=== PATIENT | female | born 1985 | race Caucasian/White ===

== ENCOUNTER 2016-02-29 14:29 | Emergency (ER) | payer OTHER, MEDICAID ==
[2016-02-29 14:46] VITALS: BP 146/90
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
== END 2016-02-29 15:28 | disposition home or self-care (01) ==
LOC: UCEAST 14:29
DX: S16.1XXA Strain of muscle, fascia and tendon at neck level, initial encounter (principal); X58.XXXA Exposure to other specified factors, initial encounter; Y93.9 Activity, unspecified; Y92.9 Unspecified place or not applicable; Z88.0 Allergy status to penicillin
CPT/HCPCS: 99212; G0463

== ENCOUNTER 2018-11-30 12:36 | Inpatient (IN) | payer BC, MEDICAID ==
[2018-11-30] MEDS ORDERED: Dinoprostone* 10 MG VAG.SUPP VAGINAL ONE (13:05)
[2018-11-30] MEDS ORDERED: Buffered Lidocaine 1% SYRIN* 1 ML/SYRINGE INTRADERM ONE (13:05)
[2018-11-30] MEDS ORDERED: Lactated Ringers 1000 ML Bag* 1,000 ML IV ONE (13:05)
--- NOTE | 2018-11-30 13:25 | HP ---
General Information - Reason for Visit 33 y/o at 40w0d here for IOL secondary to GHTN - General Information Maternal Age: 28 Grav: 4 Para: 3 SAB: 0 IEA: 0 Estimated Due Date: 11/30/18 Determined By: LMP Gestational Age in Weeks/Days: 40w0d Maternal Blood Type and Rh: A Negative - Results this Serology/RPR Result: Non-Reactive Rubella Result: Non-Immune - equivocal HBsAg Result: Negative HIV Result: Negative GBS Culture Result: Negative Past Medical History Delivery History: Hx Uncomplicated Vaginal Delivery - x 3 Pertinent Past Medical History: See Records Pertinent Past Surgical History: See Records Past Surgical History Comment: none Pertinent Family History: Non-Contributory - Antepartal Records Antepartal Records: Reviewed, Complicated by: - Morbid obesity, hypothyroidism, Rh Negative, Rubella Equivocal Review of Systems Constitutional: Comfortable CV Complaint: No Respiratory: Shortness of Breath: No Gastrointestinal: No Nausea/Vomiting, Normal Bowel Movement Genitourinary: No Dysuria, No Bleeding, No Leaking Fluid Musculoskeletal: No Complaint, No Epigastric Pain Neurological: No Headache, No Visual Changes Movement: Normal Exam Allergies/Adverse Reactions: Allergies MS Penicillins [Penicillins] Allergy (Intermediate, Verified 11/30/18 13:32) Rash T 97.3 Pulse 90 RR 20 BP 135/85 O2 Sat 100% - Measurements Height: 5 ft 9 in Weight: 345 lb Body Mass Index (BMI): 50.9 Pre- Weight: 280 lb - Exam Breast: Breast Exam Deferred CVA: No CVA Tenderness Extremities: No Edema Heart: Normal Rhythm/Heart Sounds HEENT: No Significant Findings Lungs: Clear Bilaterally Rectal: Rectal Exam Deferred Reflexes: DTR 2+ Thyroid: No Thyromegaly - Abdominal Exam Abdomen Exam: Non-Tender - Ultrasound/Biophysical Profile Ultrasound Status: Bedside Exam Ultrasound Findings: Vertex Targeted Exam Findings See L&D Outpatient Visit Provider Note for Findings: Yes Estimated Weight: 7#8oz via leopolds Cervical Exam: 1cm Effacement: 70% Station: -2 Presenting Part: Vertex Membrane Status: Intact Bleeding/Discharge: None EFM Findings - External Monitor Findings Baseline Heart Rate: 145 External Monitor Findings: Accelerations Present, No Pattern of Variable or Late Decelerations, Variability Moderate, Baseline Stable External Monitor Findings Comment: reactive, good variability Contractions: Irregular, Mild, < 45 Seconds Assessment/Plan - Assessment 33 y/o at 40w0d with GHTN, asymptomatic, here for IOL - AVSS, afebrile, hemodynamically stable - GHTN - qualified for GHTN diagnosis today in office with elevated BP. No severe range BP's, no signs/sx of PreE with severe features, denies KILPATRICK, RUQ pain , scotoma. Will proceed with IOL. Will give Magnesium sulfate for seizure ppx if s/sx of PreE with severe features develop. PreE laboratory evaluation pending. - Hx of x 3, uncomplicated - complicated by morbid obesity - SCD's while in labor and post , consider Lovenox post if limited activity - GBS negative - Rh negative - FS pp, rhogam as indicated - Rubella Equivocal - offer MMR PP - Will place cervidil for IOL - Plans to labor/deliver without epidural Ethan Greg, DO OBGYN - Obstetrical Risk Factors Obstetrical Risk Factors: Obesity, Gestational Hypertension - Plan Plan: Induction
[2018-11-30] MEDS ORDERED: Lactated Ringers 1000 ML Bag* 1,000 ML IV SCH ×2 (14:00→21:00)
[2018-11-30] MEDS ORDERED: Oxytocin in LR* 20 UNITS/1,000 ML BAG IVPB SCH ×2 (14:00→21:00)
[2018-11-30 14:25] LABS: ABS Basophils 0.1 10^3/ul (0-0.2); ABS Lymphocytes 1.3 10^3/ul (1.0-4.8); ABS Monocytes 0.6 10^3/ul (0-0.8); ABS Neutrophils 7.6 10^3/ul (1.5-7.7); Eosinophil % 0.3 %; Hematocrit 31 % (35-47); Hemoglobin 10.8 g/dL (12.0-16.0); Lymphocyte % 13.8 %; Mean Corpuscular HGB Conc 35 g/dL (31-36); Mean Corpuscular Hemoglobin 31 pg (27-31); Mean Corpuscular Volume 89 fL (80-97); Mean Platelet Volume 7.6 fL (7.4-10.4); Platelet Count 276 10^3/uL (150-450); Red Blood Count 3.49 10^6 /uL (3.70-4.87); Red Cell Distribution Width 15 % (10-15); White Blood Count 9.6 10^3/uL (3.5-10.8)
[2018-11-30 14:37] LABS: Albumin 3.2 g/dL (3.2-5.2); Albumin/Globulin Ratio 1.1 (1-3); BUN/Creatinine Ratio 14.5 (8-20); Calcium 8.5 mg/dL (8.6-10.3); EGFR African American 153.1 (>60); EGFR Non-African American 126.5 (>60); Globulin 2.8 g/dL (2-4); Potassium 3.7 mmol/L (3.5-5.0); Total Bilirubin 0.4 mg/dL (0.2-1.0)
[2018-11-30 14:53] LABS: Urine Benzodiazepine Screen None Detected (None Detect); Urine Opiates Screen None Detected (None Detect)
--- NOTE | 2018-11-30 14:56 | PN ---
Progress Note - Progress Note Date of Service: 11/30/18 Note: 33 y/o at 40w0d here for IOL 2/2 GHTN Cervidil placed at 1445 hours. FHT reactiver and reassuring, category I tracing. BP mild range, no severe range BP's, pt remains asymptomatic. PreE labs collected and reviewed, WNL plts, AST/ALT, Creatinine and Uric Acid. Will re-examin as clinically indicated. Ethan Garza, DO [facility]
[2018-11-30] MEDS ORDERED: Promethazine INJ(RESTRICTED)* 25 MG/ML 1 ML VIAL IV PRN (18:01)
[2018-11-30] MEDS ORDERED: Nalbuphine* 10 MG/ML 1 ML VIAL IV PRN (18:01)
--- NOTE | 2018-11-30 18:13 | PN ---
Progress Note - Progress Note Date of Service: 11/30/18 Note: Pt with good response to cervidil, reports contraction and back discomfort. Re-examined and has changed cervix to 5cm/80/-1. Cervidil removed. Nubaine and phenergan for pain relief. Pt remains asymptomatic, BP's normotensive currently. 33 y/o at 40w0d with GHTN, normal PEC evaluation, here for IOL - FHT reactive and reassuring, continue heart monitoring per protocol - IOL: cervidil now out, pt now 5cm - GHTN - BP's normotensive currently, asymptomatic, PreE lab eval WNL - GBS negative - Rh neg - FS pp, rhogam as indicated - Rubella Equiv - offer MMR PP - Anticipate vaginal delivery
[2018-11-30] MEDS ORDERED: Promethazine INJ(RESTRICTED)* 25 MG/ML 1 ML VIAL ONE (18:15)
[2018-11-30] MEDS ORDERED: Nalbuphine* 10 MG/ML 1 ML VIAL ONE (18:15)
[2018-11-30] MEDS ORDERED: Misoprostol TAB* 200 MCG ONE (19:44)
[2018-11-30] MEDS ORDERED: Dibucaine 1% 28.35 GM TUBE PR PRN (20:42)
[2018-11-30] MEDS ORDERED: Acetaminophen TAB* 325 MG PO PRN (20:42)
[2018-11-30] MEDS ORDERED: Misoprostol TAB* 200 MCG PR ONE (20:42)
[2018-11-30] MEDS ORDERED: RHO D Immune Globulin (HUMAN)* 300 MCG = 1,500 I.U. INJ IM ONE (20:42)
[2018-11-30] MEDS ORDERED: Measles, Mumps,Rubella VACC* 0.5 ML/VIAL SUBCUT ONE (20:42)
[2018-11-30] MEDS ORDERED: Glycerin ADULT SUPP PR PRN (20:42)
[2018-11-30] MEDS ORDERED: Witch Hazel PAD* JAR TOPICAL PRN (20:42)
[2018-11-30] MEDS ORDERED: Lidocaine 1% INJ* 10 MG/ML 30 ML SDV ONE (20:56)
[2018-11-30] MEDS ORDERED: Simethicone TAB* 80 MG TAB.CHEW PO SCH (21:00)
--- NOTE | 2018-11-30 21:00 | PROCNOTE ---
[facility] OB: Delivery Note - Delivery A Date of : 11/30/18 Time of : 19:38 [place] Sex: Female Weight at : 8 lb 14 oz Score 1 Minute: 9 Score 5 Minutes: 9 Gestational Age in Weeks and Days at Delivery: 40 Weeks and 0 Days Delivery Method: Spontaneous Vaginal Labor: Induced Did Patient attempt ?: No, Did Not Attempt Amniotic Fluid: Clear Estimated Blood Loss: 250 Anesthesia/Analgesia: None Delivered By: Geoffrey Garza JR - Nursery Level of Nursery: Regular/Bedside - Perineum Perineal Injury: Perineal Laceration, 2nd Degree Perineal Injury Comment: Both lacerations repaired with 3-0 vicryl rapide Perineal Repair: By Delivering Practioner - Events Delivery Events of Note: Pitocin Only After Delivery - Additional Delivery Notes Additional Delivery Notes: Pt presented for IOL at 40w0d secondary to GHTN diagnosed today in office. Cervidil placed at 245pm, pt began lashon regularly, cervidil out at 6pm, cervix changed from 1cm to 5cm. Re-examined at 730pm, 8cm/80/-1. AROM'd with clear fluid. Delivered with rapidly shortly after AROM. BP's stable in normotensive range. Pt is asymptomatic. No signs/sx of PreE w/ severe features. Placenta delivered in tact. Periurethral laceration and 2nd degree perieneal laceration repaired with 3-0 vicryl rapide. Rectal exam performed x 2 without any evidence of 4th degree laceration or palpable sutures in rectum. EBL 250ml, Fundus firm. 800mcg Misoprostol placed MT prophylactically given multiparity, obesity risk factors for PPH.
[2018-11-30] MEDS: Ibuprofen TAB* 600 MG PO SCH (21:14)
[2018-12-01] MEDS: Ibuprofen TAB* 600 MG PO SCH ×4 (03:16→21:14)
[2018-12-01 05:55] LABS: ABS Lymphocytes 1.5 10^3/ul (1.0-4.8); ABS Neutrophils 9.7 10^3/ul (1.5-7.7); Hematocrit 29 % (35-47); Hemoglobin 9.5 g/dL (12.0-16.0); Lymphocyte % 11.9 %; Mean Corpuscular HGB Conc 33 g/dL (31-36); Mean Corpuscular Hemoglobin 30 pg (27-31); Mean Corpuscular Volume 91 fL (80-97); Mean Platelet Volume 7.6 fL (7.4-10.4); Platelet Count 261 10^3/uL (150-450); Red Blood Count 3.15 10^6 /uL (3.70-4.87); Red Cell Distribution Width 14 % (10-15); White Blood Count 12.3 10^3/uL (3.5-10.8)
[2018-12-01] MEDS: Levothyroxine TAB* 50 MCG TAB PO SCH (06:06)
[2018-12-01] MEDS ORDERED: Omeprazole CAP(NF) 10 MG CAP PO SCH (09:00)
[2018-12-01] MEDS: Docusate CAP* 100 MG PO SCH ×3 (09:09→21:15)
[2018-12-01] MEDS: Ferrous Gluconate TAB* 324 MG TAB PO SCH ×2 (09:24→21:15)
[2018-12-01] MEDS: Oxybutynin TAB* 5 MG PO SCH (09:26)
[2018-12-02] MEDS: Ibuprofen TAB* 600 MG PO SCH ×2 (04:34→11:11)
[2018-12-02] MEDS: Levothyroxine TAB* 50 MCG TAB PO SCH (06:07)
[2018-12-02 08:21] VITALS: BP 146/85
[2018-12-02] MEDS: Oxybutynin TAB* 5 MG PO SCH (08:27)
[2018-12-02] MEDS: Ferrous Gluconate TAB* 324 MG TAB PO SCH (08:27)
[2018-12-02] MEDS: Docusate CAP* 100 MG PO SCH (08:28)
== END 2018-12-02 12:40 | disposition home or self-care (01) | DRG 560 ==
LOC: MCHOBOUT 12:36 → MCHOB 13:15
PROVIDERS: ADMIT Obstetrics & Gynecology; ATTEND Obstetrics & Gynecology
PROC: 10E0XZZ Delivery of Products of Conception, External Approach (ICD-10-PCS; principal; 2018-11-30)
PROC: 3E033VJ Introduction of Other Hormone into Peripheral Vein, Percutaneous Approach (ICD-10-PCS; 2018-11-30)
PROC: 10907ZC Drainage of Amniotic Fluid, Therapeutic from Products of Conception, Via Natural or Artificial Opening (ICD-10-PCS; 2018-11-30)
PROC: 0KQM0ZZ Repair Perineum Muscle, Open Approach (ICD-10-PCS; 2018-11-30)
PROC: 0UQMXZZ Repair Vulva, External Approach (ICD-10-PCS; 2018-11-30)
DX: O13.4 Gestational [pregnancy-induced] hypertension without significant proteinuria, complicating childbirth (principal); Z37.0 Single live birth; O99.214 Obesity complicating childbirth; E66.01 Morbid (severe) obesity due to excess calories; O99.284 Endocrine, nutritional and metabolic diseases complicating childbirth; E03.9 Hypothyroidism, unspecified; O99.344 Other mental disorders complicating childbirth; F41.8 Other specified anxiety disorders; O70.1 Second degree perineal laceration during delivery; O71.82 Other specified trauma to perineum and vulva; O90.81 Anemia of the puerperium; D64.9 Anemia, unspecified; Z3A.40 40 weeks gestation of pregnancy
CPT/HCPCS: 36415; 80053; 80307; 84550; 85025; 85461; 86850; 86900; 86901; 90707; A9270-GY; J2300; J2550; J2790

== ENCOUNTER 2019-01-25 07:22 | Day surgery (SDC) | payer BC, MEDICAID ==
[~2019-01-25 07:22] MED LIST: Buffered Lidocaine 1% SYRIN* 1 ML/SYRINGE INTRADERM ONE; Lactated Ringers 1000 ML Bag* 1,000 ML IV SCH
[2019-01-25] MEDS ORDERED: Bupivacaine 0.25% EPI 200,000* 30 ML SDV ONE (08:44)
[2019-01-25] MEDS ORDERED: Sodium Citrate/Citric Acid* 15 ML UDC ONE (09:09)
[2019-01-25] MEDS ORDERED: fentaNYL* 50 MCG/ML 2 ML VIAL (100 MCG VIAL) ONE (09:14)
[2019-01-25] MEDS ORDERED: Lidocaine 2% PF * 5 ML VIAL ONE (09:15)
[2019-01-25] MEDS ORDERED: Propofol* 10 MG/ML 20 ML BTL ONE ×2 (09:15→09:54)
[2019-01-25] MEDS ORDERED: Rocuronium* 10 MG/ML VIAL ONE (09:15)
[2019-01-25] MEDS ORDERED: Dexamethasone IV* 4 MG/ML 1 ML (4 MG) ONE (09:55)
[2019-01-25] MEDS ORDERED: Acetaminophen IV 1GM/100ML * 1,000 MG/100 ML VIAL IVPB ONE (09:59)
[2019-01-25] MEDS ORDERED: fentaNYL* 50 MCG/ML 2 ML VIAL (100 MCG VIAL) IV PRN (09:59)
[2019-01-25] MEDS ORDERED: Naloxone* 0.4 MG/ML 1 ML VIAL IV PRN (09:59)
[2019-01-25] MEDS ORDERED: DiMENhydriNATE IV* 50 MG/ML VIAL IV PUSH PRN (09:59)
[2019-01-25] MEDS ORDERED: Ondansetron INJ* 2 MG/ML VIAL ONE (10:00)
[2019-01-25] MEDS ORDERED: Neostigmine Methylsulfate* 1 MG/ML 10 ML VIAL (1 mg/ml) ONE (10:03)
[2019-01-25 11:20] VITALS: BP 110/72
--- NOTE | 2019-01-25 14:50 | OP ---
DATE OF OPERATION: 01/25/19 - [facility] DATE OF : 83 SURGEON: Tra Chan MD PRODUCT SCIENTIST: None. ANESTHESIA: General endotracheal tube. PRE-OP DIAGNOSIS: Desires permanent sterilization. POST-OP DIAGNOSIS: Desires permanent sterilization. OPERATIVE PROCEDURE: Laparoscopic bilateral tubal ligation. ESTIMATED BLOOD LOSS: Minimal. SPECIMEN: Includes none. FINDINGS: Include normal uterus, fallopian tubes, and ovaries. DESCRIPTION OF PROCEDURE: The patient was identified, procedure identified as a laparoscopic bilateral tubal ligation. The patient was taken to the operating room, prepped and draped in usual fashion in the dorsal lithotomy position under general anesthesia. A small infraumbilical incision was made and a Veress needle inserted through this. The abdomen was insufflated to 15 mmHg. The Veress needle was removed and a trocar was inserted using a Visiport under visualization and the above findings were noted. A second trocar was placed 2 cm above the pubic symphysis in the midline under direct visualization. The bipolar cautery was inserted. The right fallopian tube was grasped in its mid portion, followed out to its fimbriated ends and fulgurated x3. It was also fulgurated to fimbriated ends to desiccate those. Same procedure was carried on the left after following it out to its fimbriated ends. Good hemostasis was verified. All instruments removed from the abdomen. The abdomen was deflated of CO2. The skin was closed with skin glue. Sponge and sponge stick removed from the vagina and the patient returned to recovery room in stable condition. [id number]/[facility] #: [id number] [facility]
== END 2019-01-25 11:22 | disposition home or self-care (01) ==
LOC: OR 07:22
PROVIDERS: ATTEND Obstetrics & Gynecology
DX: Z30.2 Encounter for sterilization (principal); F41.8 Other specified anxiety disorders; E03.9 Hypothyroidism, unspecified
CPT/HCPCS: 81025; A9270-GY; J1100; J2405; J2704; J2710; J3010